=== PATIENT | male | born 1950 | race Caucasian/White ===

== ENCOUNTER → 2017-07-08 | Outpatient (CLI) | payer MEDICARE ==
[~2017-07-08] MED LIST: ALBU90OI INH; ASPI325 PO; CHLO25 PO; CLOP75 PO; FURO20 PO; HYDACE5 PO; LISI5 PO; METF500C PO; METO50 PO; SERT100 PO; TRAZ100 PO
== END | disposition home or self-care (01) ==
LOC: LAB RH 09:52 → EDSTATUS 13:53
DX: A04.71 Enterocolitis due to Clostridium difficile, recurrent (principal)
CPT/HCPCS: 87493

== ENCOUNTER → 2017-07-14 | Outpatient (CLI) | payer MEDICARE ==
[2017-07-14 18:37] LABS: Appearance, Urine Hazy (Clear); Bilirubin, Urine Neg (Neg); Blood, Urine Neg (Neg); Color, Urine Yellow (P-Yellow); Glucose Qualitative, Urine Neg (Neg); Ketones, Urine Neg (Neg); Leukocyte Esterase, Urine Neg (Neg); Nitrite, Urine Neg (Neg); Protein, Urine Neg (Neg); Specific Gravity, Urine 1.025 (1.003-1.022); Urobilinogen, Urine NORM (Normal)
[2017-07-14 18:43] LABS: Bacteria Few /hpf; Red Blood Cells, Urine Not Seen /hpf (0-2); Squamous Epithelial Cells Not Seen /hpf (Few)
== END | disposition home or self-care (01) ==
LOC: EDSTATUS 14:04 → LAB RH 15:35
DX: N39.0 Urinary tract infection, site not specified (principal)
CPT/HCPCS: 81001; 87086

== ENCOUNTER 2018-04-26 11:07 | Emergency (ER) | payer MEDICARE ==
[~2018-04-26] VITALS: Ht 165.1 cm; Wt 68.0 kg
[~2018-04-26 11:07] MED LIST changes: +ACET325 PO; +ALBU2.5V5 NEB; -ASPI325 PO; +ASPI81CH PO; +Bacid1 EACH PO; +CYAN500 PO; +HYDHCL25 PO; +LOPE2C PO; +QUET100 PO; +TERA5 PO; +Tab-A-Vite1 EACH PO
== END 2018-04-26 12:29 | disposition home or self-care (01) ==
LOC: ER 11:07
DX: G45.9 Transient cerebral ischemic attack, unspecified (principal); E11.9 Type 2 diabetes mellitus without complications; I10 Essential (primary) hypertension; J44.9 Chronic obstructive pulmonary disease, unspecified; Z87.891 Personal history of nicotine dependence; Z79.899 Other long term (current) drug therapy; Z79.82 Long term (current) use of aspirin
CPT/HCPCS: 99284